=== PATIENT | male | born 1980 | race Hispanic/Latino ===

== ENCOUNTER 2020-06-28 10:23 | Emergency (ER) | payer SELFPAY ==
[2020-06-28] MEDS ORDERED: KEFLEX500 M1 PO (12:21)
[2020-06-28] MEDS ORDERED: BACTROBAN TOP (12:21)
[2020-06-28 12:30] VITALS: BP 155/79
== END 2020-06-28 12:30 | disposition home or self-care (01) | DRG 605 ==
LOC: ED 10:23
DX: S61.012A Laceration without foreign body of left thumb without damage to nail, initial encounter (principal); S61.213A Laceration without foreign body of left middle finger without damage to nail, initial encounter; W29.3XXA Contact with powered garden and outdoor hand tools and machinery, initial encounter; Y93.H2 Activity, gardening and landscaping; Y92.007 Garden or yard of unspecified non-institutional (private) residence as the place of occurrence of the external cause

== ENCOUNTER 2022-06-01 11:58 | Emergency (ER) | payer SELFPAY ==
[~2022-06-01] VITALS: Ht 167.6 cm; Wt 90.0 kg
[~2022-06-01 11:58] MED LIST: BACTROBAN TOP; KEFLEX500 M1 PO
[2022-06-01 12:08] VITALS: BP 151/110
[2022-06-01] MEDS ORDERED: LOSARTAN POTASS50 MG PO (12:19)
[2022-06-01] MEDS ORDERED: OMEPRAZOLE10 MG PO (12:19)
[2022-06-01 12:30] VITALS: BP 153/95
[2022-06-01 12:40] LABS: HEMATOCRIT 45.6 % (39.0-50.0); HEMOGLOBIN 15.2 g/dl (14.0-18.0); IMMATURE GRANULOCYTES 0.2 % (0.0-5.0); MEAN CELL VOLUME 89.2 fL CALC (80.0-100.0); MEAN CORPUSCULAR HGB 29.7 pG CALC (26.0-32.0); MEAN CORPUSCULAR HGB CONC 33.3 g/dL CAL (32.0-36.0); NEUT# 3.54 thou/uL (1.82-7.42); RED BLOOD COUNT 5.11 mill/uL (4.70-6.10); RED CELL DISTRI WIDTH 13.2 % (11.5-15.5)
[2022-06-01 12:45] LABS: URINE BILIRUBIN - DIPSTICK NEGATIVE (NEGATIVE); URINE BLOOD DIPSTICK NEGATIVE (NEGATIVE); URINE COLOR YELLOW; URINE GLUCOSE - DIPSTICK NEGATIVE (NEGATIVE); URINE KETONE NEGATIVE (NEGATIVE); URINE LEUK ESTERASE NEGATIVE (NEGATIVE); URINE PH 5.5 (4.5-8.0); URINE PROTEIN - DIPSTICK NEGATIVE (NEG-TRACE); URINE SPECIFIC GRAVITY 1.025; URINE UROBILINOGEN - DIPSTICK 0.2 E.U./dL (0.2)
[2022-06-01 12:50] LABS: ALBUMIN 4.8 g/dL (3.2-5.0); ALKALINE PHOSPHATASE 69 u/l (38-126); AMYLASE 65 u/l (30-110); ANION GAP 11 (6-22 (CALC)); BUN 17 mg/dL (9-20); BUN/CREATININE RATIO 22 (12-20 (CALC)); CARBON DIOXIDE 27 mmol/l (22-30); CHLORIDE 106 mmol/l (95-108); CREATININE 0.8 mg/dL (0.7-1.3); GFR FOR AFR.AMER. > 60 ML/MIN (>=60 (CALC)); GFR OTHER RACES > 60 ML/MIN (>=60 (CALC)); LIPASE 97 u/l (23-300); POTASSIUM 3.7 mmol/l (3.5-5.1); SGOT/AST 34 u/l (17-59); SODIUM 139 mmol/l (137-146); TOTAL PROTEIN 7.8 g/dL (6.3-8.2)
[2022-06-01 12:51] LABS: URINE NITRITE - DIPSTICK NEGATIVE (Negative)
[2022-06-01 12:52] LABS: BILIRUBIN, TOTAL 0.6 mg/dL (0.0-1.4)
[2022-06-01 13:00] VITALS: BP 131/92
[2022-06-01 13:03] VITALS: BP 137/89
[2022-06-01] MEDS ORDERED: NAPROXEN500 MG PO (15:07)
[2022-06-01 15:11] VITALS: BP 137/89
== END 2022-06-01 15:29 | disposition home or self-care (01) | DRG 392 ==
LOC: ED 11:58
PROVIDERS: Nurse Practitioner
DX: R10.31 Right lower quadrant pain (principal); R10.32 Left lower quadrant pain; I10 Essential (primary) hypertension; K21.9 Gastro-esophageal reflux disease without esophagitis
CPT/HCPCS: Q9967

== ENCOUNTER 2022-12-09 18:50 | Emergency (ER) | payer SELFPAY ==
[~2022-12-09] VITALS: Ht 167.6 cm; Wt 92.0 kg
[~2022-12-09 18:50] MED LIST changes: +LOSARTAN POTASS50 MG PO; +NAPROXEN500 MG PO; +OMEPRAZOLE10 MG PO
[2022-12-09 19:00] VITALS: BP 152/115
[2022-12-09 19:37] LABS: BASO% 0.5 % (0-3); HEMATOCRIT 46.4 % (39.0-50.0); HEMOGLOBIN 15.2 g/dl (14.0-18.0); IMMATURE GRANULOCYTES 0.2 % (0.0-5.0); MEAN CELL VOLUME 89.4 fL CALC (80.0-100.0); MEAN CORPUSCULAR HGB 29.3 pG CALC (26.0-32.0); MEAN CORPUSCULAR HGB CONC 32.8 g/dL CAL (32.0-36.0); MONO% 11.3 % (2-13); NEUT# 3.39 thou/uL (1.82-7.42); RED BLOOD COUNT 5.19 mill/uL (4.70-6.10)
[2022-12-09 19:58] LABS: ALBUMIN 4.6 g/dL (3.2-5.0); ALKALINE PHOSPHATASE 86 u/l (38-126); ANION GAP 13 (6-22 (CALC)); BILIRUBIN, TOTAL 0.8 mg/dL (0.2-1.3); BUN 15 mg/dL (9-20); BUN/CREATININE RATIO 19 (12-20 (CALC)); CARBON DIOXIDE 23 mmol/l (22-30); CHLORIDE 107 mmol/l (95-108); CREATININE 0.8 mg/dL (0.7-1.3); GFR FOR AFR.AMER. > 60 ML/MIN (>=60 (CALC)); GFR OTHER RACES > 60 ML/MIN (>=60 (CALC)); POTASSIUM 3.5 mmol/l (3.5-5.1); SGOT/AST 54 u/l (17-59); SODIUM 140 mmol/l (137-146); TOTAL PROTEIN 7.6 g/dL (6.3-8.2)
[2022-12-09 20:56] LABS: URINE BILIRUBIN - DIPSTICK NEGATIVE (NEGATIVE); URINE BLOOD DIPSTICK NEGATIVE (NEGATIVE); URINE COLOR YELLOW; URINE GLUCOSE - DIPSTICK NEGATIVE (NEGATIVE); URINE KETONE NEGATIVE (NEGATIVE); URINE LEUK ESTERASE NEGATIVE (NEGATIVE); URINE PROTEIN - DIPSTICK NEGATIVE (NEG-TRACE); URINE SPECIFIC GRAVITY 1.025
[2022-12-09 20:57] LABS: URINE NITRITE - DIPSTICK NEGATIVE (Negative)
[2022-12-09 21:46] VITALS: BP 141/90
[2022-12-09 22:00] VITALS: BP 141/97
[2022-12-09 22:30] VITALS: BP 147/108
[2022-12-09 23:15] VITALS: BP 147/108
== END 2022-12-09 23:15 | disposition left against medical advice (07) | DRG 313 ==
LOC: ED 18:50 → ED-I 21:50 → ED 23:15
PROVIDERS: Emergency Medicine
DX: R07.9 Chest pain, unspecified (principal); I10 Essential (primary) hypertension; K21.9 Gastro-esophageal reflux disease without esophagitis

== ENCOUNTER 2023-03-01 14:09 | Observation (INO) | payer SELFPAY ==
[~2023-03-01] VITALS: Ht 167.6 cm; Wt 92.6 kg
[2023-03-01] VITALS (12 sets, daily range): BP systolic 130–149; BP diastolic 88–104
--- NOTE | 2023-03-01 14:09 | NUR ---
PT ARRIVED TO ER C/O RT FACIAL DROOP THAT IS NOTED THIS MORNING. PT REPORT HIS TONGUE FELT NUMB BEFORE BED AT 2300 LAST NIGHT. SPOUSE STATED THAT SHE NOTED THE FACIAL DROOP WHEN HE WOKE UP THIS MORNING. PT REPORT DECREASE SENSATION TO LEFT SIDE.
[2023-03-01 14:50] LABS: BASO% 0.2 % (0-3); EOS% 0.7 % (0-8); HEMATOCRIT 46.2 % (39.0-50.0); HEMOGLOBIN 15.1 g/dl (14.0-18.0); IMMATURE GRANULOCYTES 0.1 % (0.0-5.0); LYMPH% 17.4 % (15-41); MEAN CELL VOLUME 89.7 fL CALC (80.0-100.0); MEAN CORPUSCULAR HGB 29.3 pG CALC (26.0-32.0); MEAN CORPUSCULAR HGB CONC 32.7 g/dL CAL (32.0-36.0); MONO% 9.1 % (2-13); NEUT# 5.83 thou/uL (1.82-7.42); NEUT% 72.5 % (42-76); RED BLOOD COUNT 5.15 mill/uL (4.70-6.10); RED CELL DISTRI WIDTH 13.4 % (11.5-15.5)
--- NOTE | 2023-03-01 15:00 | NUR ---
PT IS RESTING IN BED. IS AT BEDIDE. PT DECLINED BLANKET.
[2023-03-01 15:06] LABS: INTERNATIONAL NORMALIZED RATIO 1.1 RATIO (0.7-1.3); PROTHROMBIN TIME 10.6 SECONDS (9.0-12.5)
[2023-03-01 15:07] LABS: ALKALINE PHOSPHATASE 71 u/l (38-126); BILIRUBIN, TOTAL 0.7 mg/dL (0.2-1.3); BUN 13 mg/dL (9-20); BUN/CREATININE RATIO 20 (12-20 (CALC)); CALCULATED LDLCHOLESTEROL 59 mg/dL (62-129 (CALC)); CHLORIDE 115 mmol/l (95-108); CHOLESTEROL HDL RATIO 4.1 (<4.4 (CALC)); CREATININE 0.6 mg/dL (0.7-1.3); GFR FOR AFR.AMER. > 60 ML/MIN (>=60 (CALC)); GFR OTHER RACES > 60 ML/MIN (>=60 (CALC)); HDL CHOLESTEROL 31 mg/dL (39.0-59.0); SGOT/AST 30 u/l (17-59); SODIUM 140 mmol/l (137-146); TOTAL CHOLESTEROL 128 mg/dl (0-199); TOTAL PROTEIN 6.1 g/dL (6.3-8.2); TOTAL TRIGLYCERIDES 193 mg/dl (0-149); VLDL CHOLESTROL 39 mg/dl (5-56 (CALC))
[2023-03-01 15:09] LABS: ALBUMIN 3.5 g/dL (3.2-5.0); ANION GAP 11 (6-22 (CALC)); CARBON DIOXIDE 17 mmol/l (22-30); POTASSIUM 2.7 mmol/l (3.5-5.1)
--- NOTE | 2023-03-01 15:40 | NUR ---
CERTIFIED REHABILITATION COUNSELOR ORDERED ORAL MEDICATION FOR THE PT. BEFORE ADMINISTRATION SWALLOW STUDY WAS PERFORMED. PT PASSED THE SWLLOW STUDY. MEDICATION ADMINISTERED PER eMAR.
--- NOTE | 2023-03-01 16:27 | NUR ---
PT EDUCATED ON THE NEED TO BE ADMITTED.
--- NOTE | 2023-03-01 17:37 | NUR ---
REPORT CALLED AND GIVENTO ESTHELA ON MS2
--- NOTE | 2023-03-01 20:00 | NUR ---
RECEIVED REPORT FROM NURSE ESTHELA, PATIENT ALERT ORIENTED X 4, AMBULATORY. PATIENT IV ON RAC G 20 ONGOING POTASSIUM INFUSING, PATIENT C/O OF PAIN ON SITE, IV APPEARS HEALTHY NO INFILTRATRION NOTED, COLD PACK APPLIED TO SITE, PATIENT ON TELEMETRY SR 87, NIH 2, STILL HAVE MILD RT SIDE FACIAL NUMBNESS. IN ROOM, PATIENT, MRI SCREENING DONE, CALL LIGHT IN REACH.
[2023-03-02 00:11] VITALS: BP 118/73
--- NOTE | 2023-03-02 00:29 | NUR ---
PATIENT ALERT ORIENTED RESTING IN BED, IN ROOM, ONGOING IV NS WITH 20 MEQ POTASSIUM AND MG SULFATE ONGOING ON OTHER IV LINE, CALL LIGHT IN REACH.
[2023-03-02 04:00] VITALS: BP 124/86
--- NOTE | 2023-03-02 04:05 | NUR ---
PATIENT RESING IN BED, NOT IN DISTRESS, BREATHING EVEN UNLABORED, CALL LIGHT IN REACH.
[2023-03-02 04:10] VITALS: BP 124/86
[2023-03-02 05:13] LABS: HEMATOCRIT 44.5 % (39.0-50.0); HEMOGLOBIN 14.6 g/dl (14.0-18.0); MEAN CELL VOLUME 90.8 fL CALC (80.0-100.0); MEAN CORPUSCULAR HGB 29.8 pG CALC (26.0-32.0); MEAN CORPUSCULAR HGB CONC 32.8 g/dL CAL (32.0-36.0); RED BLOOD COUNT 4.9 mill/uL (4.70-6.10); RED CELL DISTRI WIDTH 13.5 % (11.5-15.5)
[2023-03-02 05:26] LABS: ALBUMIN 4.1 g/dL (3.2-5.0); ALKALINE PHOSPHATASE 75 u/l (38-126); BILIRUBIN, TOTAL 0.7 mg/dL (0.2-1.3); BUN 14 mg/dL (9-20); BUN/CREATININE RATIO 21 (12-20 (CALC)); CARBON DIOXIDE 19 mmol/l (22-30); CHLORIDE 109 mmol/l (95-108); CREATININE 0.7 mg/dL (0.7-1.3); GFR FOR AFR.AMER. > 60 ML/MIN (>=60 (CALC)); GFR OTHER RACES > 60 ML/MIN (>=60 (CALC)); MAGNESIUM 2.3 mg/dL (1.6-2.3); SGOT/AST 38 u/l (17-59); SODIUM 137 mmol/l (137-146)
[2023-03-02 05:27] LABS: ANION GAP 13 (6-22 (CALC)); POTASSIUM 4.2 mmol/l (3.5-5.1)
[2023-03-02 06:55] VITALS: BP 136/98
--- NOTE | 2023-03-02 07:38 | NUR ---
RECEIVED BEDSIDE REPORT FROM LEE CARNES. PT RESTING IN BED, EYES CLOSED. ALL SAFETY MEASURES IN PLACE. VSS. NO NEEDS AT THIS TIME. PT FOR MRI, ECHO, SPEECH TODAY.
[2023-03-02 11:00] LABS: URINE BILIRUBIN - DIPSTICK Negative (NEGATIVE); URINE BLOOD DIPSTICK Negative (NEGATIVE); URINE COLOR Yellow; URINE GLUCOSE - DIPSTICK Negative (NEGATIVE); URINE KETONE Negative (NEGATIVE); URINE LEUK ESTERASE Negative (NEGATIVE); URINE NITRITE - DIPSTICK Negative (Negative); URINE PROTEIN - DIPSTICK Negative (NEG-TRACE); URINE SPECIFIC GRAVITY 1.025; URINE UROBILINOGEN - DIPSTICK 0.2 E.U./dL (0.2)
[2023-03-02 11:05] VITALS: BP 144/98
--- NOTE | 2023-03-02 12:00 | NUR ---
PT RESTING IN BED. ANXIOUS TO GO HOME. EDUCATED ON NECESSITY OF COMPLETE SCREENING. ALL SAFETY MEAUSERES IN PLACE. VSS.
[2023-03-02 15:00] VITALS: BP 144/98
[2023-03-02] MEDS ORDERED: DRY EYE RELIEF TOP (18:37)
[2023-03-02] MEDS ORDERED: PREDNISONE50 MG PO (18:42)
[2023-03-02] MEDS ORDERED: VALTREX1 GM PO (18:46)
--- NOTE | 2023-03-02 19:03 | NUR ---
Discharge instructions given. Patient verbalizes understanding of same. Discharged in stable condition via Ambulatory to Home with spouse. All belongings sent with pt.
== END 2023-03-02 19:03 | disposition home or self-care (01) | DRG 74 ==
LOC: ED 14:09 → ED-I 15:30 → ED 16:12 → MS2 16:13
PROVIDERS: Nurse Practitioner; ADMIT Student in an Organized Health Care Education/Training Program; ATTEND Student in an Organized Health Care Education/Training Program
DX: G51.0 Bell's palsy (principal); E87.6 Hypokalemia; I10 Essential (primary) hypertension; K21.9 Gastro-esophageal reflux disease without esophagitis
CPT/HCPCS: G0378; J3475; Q9967